=== PATIENT | male | born 1945 | race Caucasian/White ===

== ENCOUNTER 2022-03-04 17:29 | Emergency (ER) | payer MEDICARE, BC, SELFPAY ==
--- NOTE | 2022-03-04 17:15 | RT.EKG_ITS ---
APPROVED REPORT Exam: Resting ECG Reason for Exam: chest pain Patient Location: E HR:98 bpm ECG Measurements Heart Rate 98 AXIS LA 196 P 72 QRSd 124 QRS -18 QT 369 T 33 QTc 472 Conclusion Sinus rhythm...normal P axis, V-rate 60- 99 Right bundle branch block...QRSd>120, terminal axis(90,270). Sinus. RBBB. No STEMI. I have reviewed and interpreted ECG and agree with software generated interpretation.
[2022-03-04 17:31] VITALS: BP 175/74; PULSE 106; RESP 20; TEMP 38.8; O2SAT 95
--- NOTE | 2022-03-04 17:31 | DI.RAD_ITS ---
Exam(s) XR PORTABLE CHEST AP EXAM: XR PORTABLE CHEST AP CLINICAL HISTORY: cough, sob, r/o acute disease TECHNIQUE: 2D digital imaging was performed. COMPARISON: No exams were available for comparison FINDINGS: LUNGS: Suboptimally inflated but clear. No pleural abnormality seen. HEART: Mildly enlarged. Aorta tortuous. Vascular congestion could be secondary to poor pulmonary in flation. MEDIASTINUM: Normal. BONES: Unremarkable for age.. IMPRESSION: No acute pulmonary findings. DATA REPOSITORY: RADIATION DOSE DELIVERED:
--- NOTE | 2022-03-04 17:32 | ED.GENADUL_ITS ---
Discharge Plan Disposition Patient Disposition: HOME Condition: Improving Discharge Details Clinical Impression: Influenza A Primary Care Provider: [facility] Provider: Shanta Eduardo Home Meds and New Rx's Prescriptions: Continued bupropion HCl 150 mg tablet extended release 24 hr 150 mg PO DAILY 0RF Label Comments: TAKE 1 TABLET BY MOUTH EVERY MORNING losartan 50 mg tablet 50 mg PO DAILY 0RF Label Comments: TAKE 1 TABLET BY MOUTH DAILY cyanocobalamin (vitamin B-12) 1,000 mcg tablet 1,000 mcg PO DAILY AM 0RF Label Comments: TAKE 1 TABLET BY MOUTH DAILY cholecalciferol (vitamin D3) [Vitamin D3] 25 mcg (1,000 unit) capsule 1,000 unit PO DAILY 0RF Label Comments: TAKE ONE CAPSULE BY MOUTH EVERY DAY guaifenesin [Mucinex] 600 mg Tablet Extended Release 12hr PO 0RF Discharge Instructions Instructions: H1N1 Influenza (ED) Additional Instructions: Your lab work today reveals that you have influenza A. Your COVID test is negative. Your chest x-ray did not show evidence of pneumonia. Your calcium level was also low today. You can take an [id number] calcium supplement and discuss this further with your primary care doctor. The remainder of your lab work is reassuring and shows no evidence of acute concerning or significant findings. It is important to drink plenty of fluids and get plenty of rest. Take 500 mg of Tylenol every 4 hours and 600 mg of ibuprofen every 6 hours for pain and fever over the next few days. Call your primary care doctor's office on Saturday to schedule a follow-up appointment for reevaluation this week. Return immediately to the emergency department if you develop any worsening or new concerning symptoms such as shortness of breath, worsening leg weakness or any other concerns. Discharge Data Discharge Physician: Shanta Eduardo Medical Decision Making 1740 -- 76-year-old female with a history of hypertension and renal carcinoma with history of partial nephrectomy presents with generalized weakness, fatigue, fever and cough for the past few days. EMS reported a temp of 102. Temp 102 on arrival. Heart rate 100. Blood pressure hypertensive. Oxygen saturation within normal limits. Minimal crackles in bases bilaterally. No rhonchi or wheezing noted. No lower extremity edema. No meningeal signs. No focal deficits. Back normal to inspection. Differential diagnosis includes COVID, flu, pneumonia, bronchitis. History and presentation does not appear consistent with cauda equina syndrome, epidural abscess, CVA. Will place an IV, bolus IV fluids, IV Tylenol, IV Toradol, screening labs, portable chest x-ray, Fluvid and reassess. Labs and imaging reviewed. Influenza A positive. Negative COVID and RSV. Normal white blood cell count. Normal lactate. Calcium low at 7.5. Remainder of electrolytes within normal limits. Troponin negative. Urinalysis notes ketones and trace blood but no evidence of infection. Chest x-ray notes possible mild bronchitis but no evidence of acute pneumonia. Patient reassessed and he feels better. Patient was able to ambulate around the room. He feels comfortable going home. His vitals are within normal limits. Results discussed with family and they feel comfortable taking patient home. Advised that he is outside the window for Tamiflu but to continue to alternate Tylenol and ibuprofen, drink plenty of fluids and get plenty of rest. Advised to follow-up with the PCP this week for reevaluation. Usual and customary return precautions given prior to discharge. Medical Records Medical records reviewed: Yes I reviewed the patient's medical records. Lab Data Lab results reviewed: Yes I reviewed the patient's lab results. Labs: 03/04/22 18:03 Blood Blood Culture - Pending 03/04/22 17:31 Blood Blood Culture - Pending Laboratory Tests Range/Units 03/04/22 03/04/22 03/04/22 17:51 17:51 17:51 WBC (4.4-10.8) 10^3/uL 6.88 RBC (4.36-5.78) 10^6/uL 4.07 L Hgb (13.5-17.5) g/dL 13.2 L Hct (40.0-50.0) % 39.0 L MCV (80-95) fL 96 H MCH (27.0-33.0) pg 32.4 MCHC (32.0-36.0) % 33.8 RDW (11.8-14.1) % 12.8 Plt Count (130-400) 10^3/uL 153 MPV (8.0-11.0) fL 12.4 H Immature Gran % 0.3 Neutrophils % 74.9 Lymphocytes % 11.5 Monocytes % 12.8 Eosinophils % 0.1 Basophils % 0.4 Nucleated RBC % (0.0-0.3) % 0.0 Absolute Neutrophils (1.2-6.7) 10^3/uL 5.15 Absolute Lymphocytes (1.2-3.4) 10^3/uL 0.79 L Absolute Monocytes (0.1-0.8) 10^3/uL 0.88 H Absolute Eosinophils (0.0-0.7) 10^3/uL 0.01 Absolute Basophils (0.0-0.2) 10^3/uL 0.03 VBG Lactate (0.6-1.4) mmol/L 1.2 Sodium (136-145) mmol/L 133 L Potassium (3.5-5.1) mmol/L 3.8 Chloride (98-107) mmol/L 100 Carbon Dioxide (21.0-32.0) mmol/L 27.1 Anion Gap (3-11) mmol/L 5.9 BUN (7-18) mg/dL 10 Creatinine (0.70-1.30) mg/dL 0.9 Estimated GFR/1.73 m2 (mL/min/1.73m2) >= 60.00 Glucose (74-106) mg/dL 98 Calcium (8.5-10.1) mg/dL 7.5 L Magnesium (1.8-2.4) mg/dL 1.9 Total Bilirubin (0.2-1.0) mg/dL 0.5 AST (15-37) U/L 21 ALT (16-63) U/L 18 Alkaline Phosphatase (46-116) U/L 48 Troponin I (<or=60) ng/L < 50 Total Protein (6.4-8.2) g/dL 6.5 Albumin (3.4-5.0) g/dL 3.1 L Urine Color (Yellow) Urine Clarity (Clear) Urine pH (5-8) Ur Specific [place] (1.005-1.025) Urine Protein (Negative) mg/dL Urine Ketones (Negative) mg/dL Urine Blood (Negative) Urine Nitrite (Negative) Urine Bilirubin (Negative) Urine Urobilinogen (Up TO 0.2) EU/dL Ur Leukocyte Esterase (Negative) Urine RBC (0-2) HPF Urine WBC (0-5) HPF Ur Epithelial Cells (Negative) HPF Urine Crystals (Negative) HPF Urine Bacteria (Negative) HPF Urine Mucus (Negative) Ur Culture Indicated? Urine Glucose (Negative) mg/dL COVID-19 Source SARS-CoV-2 (PCR) (Negative) Influenza Type A (PCR) (Negative) Influenza Type B (PCR) (Negative) RSV (PCR) (Negative) Range/Units 03/04/22 03/04/22 18:03 18:48 WBC (4.4-10.8) 10^3/uL RBC (4.36-5.78) 10^6/uL Hgb (13.5-17.5) g/dL Hct (40.0-50.0) % MCV (80-95) fL MCH (27.0-33.0) pg MCHC (32.0-36.0) % RDW (11.8-14.1) % Plt Count (130-400) 10^3/uL MPV (8.0-11.0) fL Immature Gran % Neutrophils % Lymphocytes % Monocytes % Eosinophils % Basophils % Nucleated RBC % (0.0-0.3) % Absolute Neutrophils (1.2-6.7) 10^3/uL Absolute Lymphocytes (1.2-3.4) 10^3/uL Absolute Monocytes (0.1-0.8) 10^3/uL Absolute Eosinophils (0.0-0.7) 10^3/uL Absolute Basophils (0.0-0.2) 10^3/uL VBG Lactate (0.6-1.4) mmol/L Sodium (136-145) mmol/L Potassium (3.5-5.1) mmol/L Chloride (98-107) mmol/L Carbon Dioxide (21.0-32.0) mmol/L Anion Gap (3-11) mmol/L BUN (7-18) mg/dL Creatinine (0.70-1.30) mg/dL Estimated GFR/1.73 m2 (mL/min/1.73m2) Glucose (74-106) mg/dL Calcium (8.5-10.1) mg/dL Magnesium (1.8-2.4) mg/dL Total Bilirubin (0.2-1.0) mg/dL AST (15-37) U/L ALT (16-63) U/L Alkaline Phosphatase (46-116) U/L Troponin I (<or=60) ng/L Total Protein (6.4-8.2) g/dL Albumin (3.4-5.0) g/dL Urine Color (Yellow) Yellow Urine Clarity (Clear) Clear Urine pH (5-8) 7.0 Ur Specific [place] (1.005-1.025) 1.025 Urine Protein (Negative) mg/dL Trace H Urine Ketones (Negative) mg/dL 40 H Urine Blood (Negative) Trace-intact H Urine Nitrite (Negative) Negative Urine Bilirubin (Negative) Negative Urine Urobilinogen (Up TO 0.2) EU/dL 0.2 Ur Leukocyte Esterase (Negative) Negative Urine RBC (0-2) HPF 0-2 Urine WBC (0-5) HPF Negative Ur Epithelial Cells (Negative) HPF Negative Urine Crystals (Negative) HPF Negative Urine Bacteria (Negative) HPF Negative Urine Mucus (Negative) Moderate Ur Culture Indicated? No Urine Glucose (Negative) mg/dL Negative COVID-19 Source Not Applicable SARS-CoV-2 (PCR) (Negative) Negative Influenza Type A (PCR) (Negative) Positive A Influenza Type B (PCR) (Negative) Negative RSV (PCR) (Negative) Negative ECG Data Attestation: I personally reviewed and interpreted this ECG (s) as follows: Interpretation: rate of 98, sinus, RBBB, no stemi. HPI General Date/Time Provider Initiated Documentation: 03/04/22 17:30 . Limitations to Documentation: no limitations . Information obtained by: patient . HPI Narrative: Patient is a 76-year-old male with history of hypertension and renal carcinoma with history of partial nephrectomy presents with increased weakness, fatigue, fever and cough for the past 3 days. Patient states he has a history of chronic bilateral leg weakness for several years but states this has been worse over the past few days including weakness in his entire body. He states he was at a friend's house yesterday and was having difficulty getting up from the toilet due to weakness. He had a temperature of 101 at home today. He states he did not take any Tylenol or ibuprofen today. He states he has received 3 COVID vaccines and is scheduled for his second COVID booster on Saturday. He states his grandchildren were recently diagnosed with COVID. He denies any loss of sense of smell or taste, vomiting, diarrhea or urinary symptoms. Related Data Home Medications Medication Instructions Recorded Confirmed bupropion HCl 150 mg 24 hr tablet, 150 mg PO DAILY 03/04/22 03/04/22 extended release cholecalciferol (vitamin D3) 25 1,000 unit PO DAILY 03/04/22 03/04/22 mcg (1,000 unit) capsule (Vitamin D3) cyanocobalamin (vitamin B-12) 1,000 mcg PO DAILY AM 03/04/22 03/04/22 1,000 mcg tablet guaifenesin 600 mg tablet, mg PO 03/04/22 extended release 12 hr (Mucinex) losartan 50 mg tablet 50 mg PO DAILY 03/04/22 03/04/22 Allergies Allergy/AdvReac Type Severity Reaction Status Date / Time No Known Allergies Allergy Unverified 03/04/22 17:35 General Stated Complaint: Fever VETO: 2 Review of Systems All systems reviewed & are unremarkable except as noted in HPI and below Constitutional Constitutional: Denies chills, Denies excessive sweating, Denies fatigue, Reports fever(s), Reports poor appetite, Denies weakness and Denies weight loss Eyes Eyes: Reports system reviewed and no additional complaints, except as documented and Denies blurry vision ENT Ears, Nose, Mouth, and Throat: Denies vertigo, Denies dizziness, Denies otalgia, Denies nasal congestion, Denies sore throat and Denies throat swelling Cardiovascular Cardiovascular: Denies chest pain, Denies syncope, Denies rapid heart rate and Denies dyspnea Respiratory Respiratory: Denies chest congestion, Reports cough, Denies pain on inspiration and Denies dyspnea Gastrointestinal Gastrointestinal: Denies abdominal pain, Denies diarrhea and Denies vomiting Genitourinary Genitourinary: Denies hematuria, Denies dysuria and Denies flank pain Musculoskeletal Musculoskeletal: Denies back pain and Denies joint swelling Integumentary/Breasts Skin/Breast: Denies lesions and Denies rash Neurologic Neurologic: Denies behavioral changes, Denies confusion, Denies vertigo, Denies dizziness, Denies syncope, Denies localized weakness and Denies weakness Psychiatric Psychiatric: Denies behavioral changes, Denies confusion and Denies depression Endocrine Endocrine: Denies excessive sweating and Denies fatigue Hematologic/Lymphatic Hematologic/Lymphatic: Denies easy bruising and Denies lymphadenopathy Allergic/Immunologic Allergic/Immunologic: Denies throat swelling PFSH All Active Problems (Updated 03/04/22 @ 19:28 by Shanta Eduardo DO) Influenza A (Acute) Medical History (Updated 03/04/22 @ 19:28 by Shanta Eduardo DO) HTN (hypertension) Renal cancer Surgical History (Updated 03/04/22 @ 18:02 by Shanta Eduardo DO) History of partial nephrectomy S/P skin cancer resection forehead Social History Smoking/Tobacco Use Status: Never Smoking risk assessment performed?: Yes Drug use: Never Substance use type: does not use Do you feel safe at home: Yes Do you feel safe in your relationship?: Yes Exam Const General: cooperative and uncomfortable Orientation: alert, awake and oriented x3 HENMT Head: normal to inspection Ears: hearing grossly normal bilaterally, external ears normal and TM's normal bilaterally General nose exam: external nose normal Face and sinus: normal facial exam Mouth: oral mucosae normal Teeth and gingiva: dentition normal Throat: posterior oropharynx normal Eyes General: appearance normal, both eyes and all related structures Eyelids: eyelids normal Pupils: PERRL EOM: EOM intact bilaterally Neck Neck: normal visual inspection Lymphatic: no lymphadenopathy noted Chest Chest: normal inspection of the chest Resp Effort & Inspection: normal respiratory effort and able to speak in complete sentences Auscultation: clear to auscultation bilaterally Cardio Rate: tachycardic Rhythm: regular rhythm GI Inspection: normal to inspection Palpation: soft, not firm, no guarding, no hepatosplenomegaly, no masses and nontender Auscultation: normal bowel sounds Back/Spine/Pelvis Thoracic/Lumbar Spine: straight leg raise negative bilaterally Skin General skin exam: no rashes or lesions noted Neuro General: patient alert, patient awake, moves all extremities, no meningeal signs and no focal motor deficits Cognition: normal cognition Speech: speech normal Gait: normal gait Motor: muscle tone normal throughout and strength 5/5 throughout Sensory Exam: no sensory deficits noted DTR's: Rt Patellar: 1+, Lt Patellar: 1+, Rt Ankle: 1+ and Lt Ankle: 1+ Plantar Reflexes: Equivocal: bilateral (negative babinski b/l ) Extrem General: normal to inspection, full ROM, capillary refill normal and no edema Psych Appearance: grossly normal Mental Status: mental status grossly normal Speech and Movement: speech and movement normal Affect: normal affect Thought Process: normal
[2022-03-04 17:38] VITALS: RESP 16
[2022-03-04 17:57] LABS: Abs Immature Grans 0.02 10^3/uL (0.0-0.06); Absolute Basophil Count 0.03 10^3/uL (0.0-0.2); Absolute Eosinophil Count 0.01 10^3/uL (0.0-0.7); Absolute Lymphocyte Count 0.79 10^3/uL (1.2-3.4); Absolute Monocyte Count 0.88 10^3/uL (0.1-0.8); Absolute Neutrophil Count 5.15 10^3/uL (1.2-6.7); Basophils % 0.4; Eosinophils % 0.1; HGB 13.2 g/dL (13.5-17.5); Immature Grans % 0.3; Lactate 1.2 mmol/L (0.6-1.4); Lymphocytes % 11.5; MCH 32.4 pg (27.0-33.0); MCHC 33.8 % (32.0-36.0); MCV 96 fL (80-95); MPV 12.4 fL (8.0-11.0); Monocytes % 12.8; Neutrophils % 74.9; Platelet Count 153 10^3/uL (130-400); RBC 4.07 10^6/uL (4.36-5.78); RDW 12.8 % (11.8-14.1); RDW-SD 45.2 fL; WBC 6.88 10^3/uL (4.4-10.8)
[2022-03-04 18:14] LABS: ALT 18 U/L (16-63); AST 21 U/L (15-37); Albumin 3.1 g/dL (3.4-5.0); Alkaline Phosphatase 48 U/L (46-116); Anion Gap 5.9 mmol/L (3-11); BUN 10 mg/dL (7-18); Bilirubin, Total 0.5 mg/dL (0.2-1.0); CO2 27.1 mmol/L (21.0-32.0); CREATININE 0.9 mg/dL (0.70-1.30); Calcium 7.5 mg/dL (8.5-10.1); Chloride 100 mmol/L (98-107); Glucose 98 mg/dL (74-106); Magnesium 1.9 mg/dL (1.8-2.4); Potassium 3.8 mmol/L (3.5-5.1); Sodium 133 mmol/L (136-145); Total Protein 6.5 g/dL (6.4-8.2); Troponin I < 50 ng/L (<or=60)
[2022-03-04] MEDS: ACETAMINOPHEN 1,000 MG/100 ML BTL 400 MG IVPB (18:17)
[2022-03-04] MEDS: Normal Saline 1,000 ML 1000 ML IV (18:17)
[2022-03-04] MEDS: Ketorolac 30 MG/ML VIAL IVP (18:17)
[2022-03-04 18:46] VITALS: BP 165/68; PULSE 96; RESP 17; O2SAT 95
[2022-03-04 18:46] LABS: COVID-19 PCR Negative (Negative); Influenza A PCR Positive (Negative); Influenza B PCR Negative (Negative); RSV PCR Negative (Negative)
--- NOTE | 2022-03-04 18:52 | NUR.NOTE ---
pt was able to get up and stand to use urinal without any assistance. KAROL
[2022-03-04 18:53] LABS: Bilirubin Negative (Negative); Blood Trace-intact (Negative); Clarity Clear (Clear); Glucose Negative (Negative); Ketones 40 mg/dL (Negative); Leukocyte Esterase Negative (Negative); Nitrite Negative (Negative); Specific Gravity 1.025 (1.005-1.025); Urobilinogen 0.2 EU/dL (Up TO 0.2)
[2022-03-04 19:01] LABS: Bacteria Negative HPF (Negative); Crystals Negative HPF (Negative); Epithelial Cells Negative HPF (Negative); Mucus Moderate (Negative); RBC 0-2 HPF (0-2); WBC Negative HPF (0-5)
[2022-03-04 19:02] LABS: C & S Indicated? No
--- NOTE | 2022-03-04 19:17 | NUR.NOTE ---
pt was able to ambulate independently around the room. he stated he felt weak but was stable to walk and felt ok to go back home. provider has been notified. KAROL
[2022-03-04 19:33] VITALS: BP 146/72; PULSE 78; RESP 17; O2SAT 97
== END 2022-03-04 19:39 | disposition home or self-care (01) ==
PROVIDERS: Emergency Provider Physician Assistant
DX: J10.1 Influenza due to other identified influenza virus with other respiratory manifestations (principal); R06.02 Shortness of breath; R05.9 Cough, unspecified; R07.9 Chest pain, unspecified
CPT/HCPCS: 36415; 80053; 87040; 87637; 93005; 96361; 96365; 96375; 99284; 71045; 81003; 81015; 83605; 83735; 84484; 85025; 93010; J0131; J1885